=== PATIENT | female | born 1985 | race Caucasian/White ===

== ENCOUNTER 2025-03-13 17:43 | Emergency (ER) | payer OTHER ==
[~2025-03-13] VITALS: Ht 167.6 cm; Wt 75.0 kg
[2025-03-13 17:50] VITALS: BP 132/78; PULSE 65; O2SAT 100
--- NOTE | 2025-03-13 17:55 | ELECTROCARDIOGRAPH REPORT ---
[facility] Test Date: 2025-03-13 Test Time: 17:51:08 Pat Name: JEFFRY OROZCO Department: EMERGENCY ROOM [id number] Room: Gender: F Heater Installer: : 1985 Requested By: TRIPP MASON Order Number: [id number] Reading MD: Dr. NANCY Sunshien Measurements Intervals [place] Rate: 68 P: 83 LA: 110 QRS: 70 QRSD: 84 T: 77 QT: 423 QTc: 450 Interpretive Statements Sinus rhythm Borderline short LA interval Low voltage, precordial leads Baseline wander in lead(s) II,aVF Electronically Signed On 03-14-2025 18:11:[address] NANCY Sunshine Please click the below link to view image of tracing.
--- NOTE | 2025-03-13 18:17 | RADIOLOGY REPORT ---
CHEST RADIOGRAPH INDICATION: CP TECHNIQUE: Single frontal view of the chest was obtained COMPARISON: None FINDINGS: Lines and Tubes: None Lungs: No focal consolidation. Pleura: No effusion. No pneumothorax. Cardiomediastinal contours: Unremarkable Bones: No acute osseous abnormality. IMPRESSION: No acute cardiopulmonary disease.
[2025-03-13 18:25] LABS: MEAN PLATELET VOLUME 7.5 FL (7.4-10.4); RED CELL DISTRIBUTION WIDTH 13.0 % (11.5-14.5)
[2025-03-13 18:44] LABS: CREATININE 0.80 MG/DL (0.40-0.90); PRO BRAIN NATRIURETIC PEPTIDE 65 PG/ML (0-125); TOTAL CARBON DIOXIDE 26.6 MMOL/L (24-32); eCRCL 87 ML/MIN; eGFR 79 ML/MIN
[2025-03-13 19:41] VITALS: RESP 16
[2025-03-13] MEDS ORDERED: CYCL-394 PO (19:41)
[2025-03-13] MEDS ORDERED: NAPR-56 PO (19:41)
[2025-03-13] MEDS: ketorolac trometh 30MG/ML vial 30 MG/ML VIAL IV STA (19:41)
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
== END 2025-03-13 19:57 | disposition home or self-care (01) ==
LOC: ER 17:44
DX: S13.4XXA Sprain of ligaments of cervical spine, initial encounter (principal); Z79.899 Other long term (current) drug therapy; X58.XXXA Exposure to other specified factors, initial encounter; Y93.89 Activity, other specified; Y92.89 Other specified places as the place of occurrence of the external cause; Y99.8 Other external cause status
CPT/HCPCS: 36415; 71045; 80048; 83880; 84484; 85025; 93005; 96374; 99285; J1885